=== PATIENT | male | born 1935 | race Caucasian/White ===

== ENCOUNTER 2016-04-19 04:45 | Emergency (ER) | payer OTHER ==
--- NOTE | 2016-04-19 04:55 | PROVIDER DOCUMENTATION ---
HPI-Head Injury - General Chief Complaint: Fall Stated Complaint: FALL, "SMALL SCRATCH ON FACE" Time Seen by Provider: 04/19/16 04:49 Source: patient, EMS Allergies/Adverse Reactions: Patient Allergies Allergy/AdvReac Type Severity Reaction Status Date / Time No Known Allergies Allergy Verified 04/19/16 04:52 Home Medications: Home Medication List Medication Instructions Recorded Confirmed Last Taken Type Finasteride 5 mg PO DAILY 07/05/13 09/04/14 09/03/14 18:00 History Terazosin [Hytrin] 5 mg PO DAILY 07/05/13 09/04/14 09/03/14 18:00 History Metformin E.r. [Glucophage Xr] 1,000 mg PO BID CC 07/06/13 09/04/14 09/03/14 18: 00 History Aspirin 81 mg PO DAILY 10/04/13 09/04/14 09/03/14 18:00 History Ergocalciferol (Vitamin D2) 50,000 unit PO Q7D 10/04/13 09/04/14 08/15/14 History [Vitamin D] Pioglitazone [Actos] 50 mg PO DAILY 10/04/13 09/04/14 09/03/14 18:00 History Clopidogrel [Plavix] 75 mg PO HS #0 tablet 10/09/13 09/04/14 09/03/14 18:00 Rx Simvastatin 40 mg PO QHS 03/19/14 09/04/14 09/03/14 18:00 History Amlodipine Besylate 2.5 mg PO QHS 08/16/14 09/04/14 09/03/14 18:00 History Docusate Sodium 2 cap PO QHS 08/16/14 09/04/14 09/03/14 18:00 History Melatonin 3 mg PO QHS 08/16/14 09/04/14 09/03/14 18:00 History Acetaminophen [Tylenol] 650 mg PO Q6H PRN PRN #0 tablet 09/20/15 Unknown Rx Donepezil [Aricept] 5 mg PO QAM #0 tablet 09/20/15 Unknown Rx Finasteride [Proscar] 5 mg PO DAILY #0 tablet 09/20/15 Unknown Rx - History of Present Illness-Head Injury Nature of Presenting Problem: pt was sent from his SNF as he fell while getting up to walk to the bathroom. He fall frequently. 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 HE did sustain an abrasion over the right side of his scalp. HE denies any other injuries and denies all pain. No LOC. No hx of recent illness or changes in his medications Review of Systems - Adult - REVIEW OF SYSTEMS - ADULT Constitutional: denies: chills, fever Eyes: denies: discharge, decreased vision, blurred vision, double vision Ears, Nose, Mouth & Throat: denies: ear pain Cardiovascular: denies: chest pain, palpitations, syncope Respiratory: denies: cough, shortness of breath Gastrointestinal: denies: abdominal pain, diarrhea, nausea, vomiting Genitourinary: denies: dysuria, frequency, flank pain Musculoskeletal: denies: back pain, neck pain Integumentary: denies: rash Neurological: reports: see HPI. denies: headache/migraines, numbness Psychiatric: reports: no symptoms reported Endocrine: reports: no symptoms reported Hematologic/Lymphatic: reports: no symptoms reported Allergic/Immunologic: reports: no symptoms reported All Other Systems: Reviewed and Negative Past History - Adult - PAST MEDICAL HISTORY-ADULT Review of Records: reports: Old Records Reviewed, Nursing Assessment Review, Medications Reviewed, Social history reviewed & non-contributory. Major Childhood Illnesses: reports: denies history Cardiovascular: reports: angina, CAD, HTN, hyperlipidemia Respiratory: reports: denies history Gastrointestinal: reports: denies history Obstetrical/Gynecological: reports: denies history Genitourinary: reports: other (BPH) Musculoskeletal: reports: denies history Neurological: reports: CVA, stroke deficits (right sided-mild) Psychiatric: reports: denies history Endocrine/Immune: reports: Diabetes Other Conditions: reports: denies history - PRIOR SURGERIES/PROCEDURES Surgical/Procedure History: reports: CABG, orthopedic (extremity) - PRIOR HOSPITALIZATIONS Prior Hospitalizations: reports: for other non-related - IMMUNIZATION STATUS Childhood Immunizations: See Nurse Assessment Flu Vaccine: See Nurse Assessment - FAMILY HISTORY Family History: reviewed, not pertinent - SOCIAL HISTORY Smoking: denies Substance Use: none/never Alcohol Use Frequency: never Living Situation: care facility Physical Exam- Neurological - Physical Exam-Neuro Initial Vital Signs Reviewed: Yes General Appearance: appears well, alert, no apparent distress Eye Exam: bilateral eye: PERRL, EOMI HENMT: negative: normocephalic/atraumatic (minor abrasion over right side of head with no tenderness) Head Injury: negative: active bleeding, Rocha's Sign Neck: non-tender, full range of motion, supple, normal inspection Respiratory: chest non-tender, lungs clear, normal breath sounds, no pleuratic chest pain, no respiratory distress, no accessory muscle use Cardiovascular: regular rate, rhythm, no edema, no murmur Abdominal Exam: normal bowel sounds, non tender, soft, no organomegaly, no pulsatile mass, abdominal bruit Extremity: non-tender, normal inspection, no pedal edema, 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 negative: no motor deficit (pt is moderately weak on the RUE. RLE. 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 negative: no motor/ sensory deficits, aphasia Integumentary: normal color, normal turgor, warm/dry Psych/Mental Status: normal mood/affect, normal thought content, normal thought process, oriented x 3 Progress - CT/MRI 1 CT Study: Head Impression: Normal CT Results: no acute changes Departure - Departure Time of Disposition Order: 05:51 DIAGNOSIS: Scalp abrasion Qualifiers: Encounter type: initial encounter Qualified Code(s): S00.01XA - Abrasion of scalp, initial encounter Disposition: [facility] Certified Medical Emergency: Emergent Condition: Good Additional Instructions: ED Follow Up Instructions: You have been treated by a care provider in the Emergency Department. These instructions are being provided to you so you can have an understanding of how to care for yourself upon discharge. Upon discharge from the Emergency Department, you are responsible for making arrangements for follow-up care by a physician of your choice. Take all prescribed medications as directed. Return to the Emergency Department immediately for any new or worsening symptoms. You may call the Physician Referral phone number at [phone] to obtain a list of Physicians who are taking new patients.
[2016-04-19 06:33] VITALS: BP 132/81
--- NOTE | 2016-04-19 08:25 | Diag Imaging Result Document ---
PROCEDURE NAME: HEAD W/O CONTRAST - 04/19/2016 CT OF THE HEAD WITHOUT CONTRAST: FINDINGS: There is cerebral and cerebellar atrophy. There is extensive abnormal lucency throughout the white matter of both hemispheres. There is no evidence of bleed, mass effect, or abnormal extraaxial fluid collection. There are calcifications in the basilar and both internal carotid arteries. There is some mucosal thickening in both maxillary sinuses. The calvarium appears to be intact. There is encephalomalacia in the left occipital lobe. IMPRESSION: Chronic microvascular change, atrophy and old infarcts. No significant change since 09/13/2015.
== END 2016-04-19 06:33 ==
LOC: EDBD → ED 04:45
DX: S00.01XA Abrasion of scalp, initial encounter (principal); I25.10 Atherosclerotic heart disease of native coronary artery without angina pectoris; I10 Essential (primary) hypertension; E78.5 Hyperlipidemia, unspecified; R29.6 Repeated falls; N40.0 Benign prostatic hyperplasia without lower urinary tract symptoms; I69.851 Hemiplegia and hemiparesis following other cerebrovascular disease affecting right dominant side; E11.9 Type 2 diabetes mellitus without complications; Z79.899 Other long term (current) drug therapy; Z95.1 Presence of aortocoronary bypass graft; Z79.02 Long term (current) use of antithrombotics/antiplatelets; Z79.82 Long term (current) use of aspirin; W19.XXXA Unspecified fall, initial encounter
CPT/HCPCS: 70450

== ENCOUNTER 2018-04-08 06:31 | Inpatient (IN) ==
--- NOTE | 2018-04-08 06:51 | PROVIDER DOCUMENTATION ---
HPI-Respiratory General - General Chief Complaint: Shortness of Breath Stated Complaint: Low oxygen sat Time Seen by Provider: 04/08/18 06:41 Source: patient, EMS (EMS gives hx of pt eating breakfast at [facility] when began asping fro air and lips were cyanotic. P Ox 83%. no hx COPD, CHF, CA.) Allergies/Adverse Reactions: Patient Allergies Allergy/AdvReac Type Severity Reaction Status Date / Time No Known Allergies Allergy Verified 04/19/16 04:52 Home Medications: Home Medication List Medication Instructions Recorded Confirmed Last Taken Type Finasteride 5 mg PO DAILY 07/05/13 04/08/18 06/03/17 08:00 History Terazosin [Hytrin] 5 mg PO HS 07/05/13 04/08/18 06/03/17 20:00 History Metformin E.r. [Glucophage Xr] 500 mg PO BID CC 07/06/13 04/08/18 06/03/17 20: 00 History 500 MG Acetaminophen [Tylenol] 500 mg PO BID 06/04/17 04/08/18 06/03/17 20:00 History 500 MG Amlodipine [Norvasc] 5 mg PO BID 06/04/17 04/08/18 06/03/17 20:00 History 5 MG Cholecalciferol (Vitamin D3) 1,000 unit PO DAILY 06/04/17 04/08/18 06/03/17 08: 00 History [Vitamin D3] Citalopram Hydrobromide [Celexa] 5 mg PO DAILY 06/04/17 04/08/18 06/03/17 08:00 History Fluticasone 50 Mcg Nasal [place] 2 spray [place] DAILY 06/04/17 04/08/18 06/03/17 08: 00 History [Flonase] 2 SPRAY Loperamide [Imodium] 2 mg PO PRN PRN 06/04/17 04/08/18 Unknown History Pantoprazole [Protonix] 40 mg PO DAILY@0700 06/04/17 04/08/18 06/03/17 08:00 History 40 MG Polyethylene Glycol 3350 [Miralax] 17 gm PO PRN PRN 06/04/17 04/08/18 Unknown History Baclofen 5 mg PO BID 04/08/18 04/08/18 Unknown History - History of Present Illness-Resp Nature of Presenting Problem: pt denies CP, sensation of SOB, n, v, diarrhea,. no fever or cough. Admits to hx of CVA,HTN,DM(metformin). Quality of Pain: reports: none Review of Systems - Adult - REVIEW OF SYSTEMS - ADULT Constitutional: reports: no symptoms reported. denies: chills, fever, fatique, night sweats Eyes: reports: no symptoms reported Ears, Nose, Mouth & Throat: reports: no symptoms reported Cardiovascular: reports: no symptoms reported. denies: chest pain, edema, palpitations, syncope Respiratory: reports: no symptoms reported. denies: cough, dyspnea on exertion , shortness of breath, wheezing Gastrointestinal: reports: no symptoms reported. denies: nausea, vomiting Genitourinary: reports: no symptoms reported Musculoskeletal: reports: no symptoms reported Integumentary: reports: no symptoms reported Neurological: reports: no symptoms reported Psychiatric: reports: no symptoms reported Endocrine: reports: no symptoms reported Hematologic/Lymphatic: reports: no symptoms reported Allergic/Immunologic: reports: no symptoms reported All Other Systems: Reviewed and Negative Past History - Adult - PAST MEDICAL HISTORY-ADULT Review of Records: reports: Old Records Reviewed, Nursing Assessment Review, Medications Reviewed, Social history reviewed & non-contributory. Major Childhood Illnesses: reports: denies history Cardiovascular: reports: angina, CAD, HTN, hyperlipidemia Respiratory: reports: denies history Gastrointestinal: reports: denies history Obstetrical/Gynecological: reports: denies history Genitourinary: reports: other (BPH) Musculoskeletal: reports: denies history Neurological: reports: CVA, stroke deficits (right sided-mild) Psychiatric: reports: denies history Endocrine/Immune: reports: Diabetes Other Conditions: reports: denies history - PRIOR SURGERIES/PROCEDURES Surgical/Procedure History: reports: CABG, orthopedic (extremity) - PRIOR HOSPITALIZATIONS Prior Hospitalizations: reports: for other non-related - IMMUNIZATION STATUS Childhood Immunizations: See Nurse Assessment Flu Vaccine: See Nurse Assessment - FAMILY HISTORY Family History: reviewed, not pertinent Physical Exam-General - CONSTITUTIONAL General Appearance: alert, no apparent distress - EYES Eyes: PERRL/EOMI, pink conjunctivae - HEAD, EARS, NOSE, MOUTH & THROAT HENMT: normocephalic/atraumatic, moist mucous membranes, normal ENT inspection - NECK Neck: full range of motion, supple - RESPIRATORY Respiratory: lungs clear, normal breath sounds, no respiratory distress, no accessory muscle use. negative: crackles, rales, rhonchi, stridor, wheezing - CARDIOVASCULAR Cardiovascular: regular rate, rhythm, no edema, no gallop, no JVD, no murmur - GASTROINTESTINAL (ABDOMEN) Abdominal Exam: non tender, soft, no organomegaly - MUSCULOSKELETAL Extremity: no pedal edema, no calf tenderness. 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 negative: aphasia, facial droop - PSYCHIATRIC Psych/Mental Status: normal mood/affect, normal thought content, normal thought process, oriented x 3 - HEART Score HEART Score: Age: > or = 65 Years HEART Score: Risk Factors for Atherosclerotic Disease: > or = 3 Risk Factors or History of Atherosclerotic Disease Progress - PLAN OF CARE/RESULTS Progress/Plan/Lab Results: Vital Signs - 8 hr 04/08/18 06:31 04/08/18 07:29 Temperature 98.9 F Pulse Rate 82 87 Respiratory Rate 15 24 Blood Pressure 144/83 160/89 O2 Sat by Pulse Oximetry 90 L 95 Laboratory Results - last 24 hr 04/08/18 04/08/18 04/08/18 04:40 04:40 04:40 WBC 11.32 H RBC 4.59 L Hgb 14.0 Hct 42.4 MCV 92.4 MCH 30.5 MCHC 33.0 RDW Std Deviation 13.5 Plt Count 250 MPV 9.6 Immature Gran % (Auto) 0.5 Neut % (Auto) 48.6 Lymph % (Auto) 34.2 [place] % (Auto) 12.2 H Eos % (Auto) 4.0 Baso % (Auto) 0.5 Immature Gran # (Auto) 0.06 H Neut # (Auto) 5.50 Lymph # (Auto) 3.87 H [place] # (Auto) 1.38 H Eos # (Auto) 0.45 Baso # (Auto) 0.06 D-Dimer, Quantitative Specimen Type Sample Site pH pCO2 pO2 HCO3 Base Excess Oxyhemoglobin ABG O2 Sat (Calculated) ABG O2 Saturation ABG Carboxyhemoglobin ABG Methemoglobin Yovani Test A-a O2 Difference Total Hemoglobin Lactate Blood Gas Modality FiO2 % Sodium Potassium Chloride Carbon Dioxide Anion Gap BUN Creatinine Estimated GFR/1.73 m2 BUN/Creatinine Ratio Glucose Calculated Osmolality Calcium Magnesium 1.9 Total Bilirubin AST ALT Alkaline Phosphatase Troponin T [id number] Pept 182 Total Protein Albumin Globulin Albumin/Globulin Ratio Lipase 15 Urine Source Urine Color Urine Clarity Urine pH Ur Specific Peculiar Urine Protein Urine Ketones Urine Blood Urine Nitrite Urine Bilirubin Urine Urobilinogen Urine Microscopic RBC Urine WBC Urine Microscopic WBC Urine Bacteria Urine Glucose Influenza A (Rapid) Influenza B (Rapid) 04/08/18 04/08/18 04/08/18 04:40 06:40 06:40 WBC RBC Hgb Hct MCV MCH MCHC RDW Std Deviation Plt Count MPV Immature Gran % (Auto) Neut % (Auto) Lymph % (Auto) [place] % (Auto) Eos % (Auto) Baso % (Auto) Immature Gran # (Auto) Neut # (Auto) Lymph # (Auto) [place] # (Auto) Eos # (Auto) Baso # (Auto) D-Dimer, Quantitative 2.02 H Specimen Type Sample Site pH pCO2 pO2 HCO3 Base Excess Oxyhemoglobin ABG O2 Sat (Calculated) ABG O2 Saturation ABG Carboxyhemoglobin ABG Methemoglobin Yovani Test A-a O2 Difference Total Hemoglobin Lactate Blood Gas Modality FiO2 % Sodium 139 Potassium 3.9 Chloride 103 Carbon Dioxide 20 L Anion Gap 17 BUN 13 Creatinine 0.8 Estimated GFR/1.73 m2 > 60 BUN/Creatinine Ratio 16 Glucose 112 H Calculated Osmolality 278 Calcium 8.8 Magnesium Total Bilirubin 0.40 AST 10 ALT 6 L Alkaline Phosphatase 94 Troponin T 0.017 [id number] Pept Total Protein 6.1 L Albumin 3.8 Globulin 2.0 Albumin/Globulin Ratio 2.0 Lipase Urine Source Urine Color Urine Clarity Urine pH Ur Specific [place]iar Urine Protein Urine Ketones Urine Blood Urine Nitrite Urine Bilirubin Urine Urobilinogen Urine Microscopic RBC Urine WBC Urine Microscopic WBC Urine Bacteria Urine Glucose Influenza A (Rapid) Influenza B (Rapid) 04/08/18 04/08/18 04/08/18 06:53 06:55 07:35 WBC RBC Hgb Hct MCV MCH MCHC RDW Std Deviation Plt Count MPV Immature Gran % (Auto) Neut % (Auto) Lymph % (Auto) [place] % (Auto) Eos % (Auto) Baso % (Auto) Immature Gran # (Auto) Neut # (Auto) Lymph # (Auto) [place] # (Auto) Eos # (Auto) Baso # (Auto) D-Dimer, Quantitative Specimen Type ARTERIAL Sample Site L BRACHIAL pH 7.47 H pCO2 33 L pO2 47 L* HCO3 25.3 Base Excess 0.9 Oxyhemoglobin 84.1 L* ABG O2 Sat (Calculated) 16.5 ABG O2 Saturation 87.1 L ABG Carboxyhemoglobin 2.20 ABG Methemoglobin 1.1 Yovani Test NO A-a O2 Difference 61.0 Total Hemoglobin 14.0 Lactate 1.00 Blood Gas Modality ROOM AIR FiO2 % 21.0 Sodium Potassium Chloride Carbon Dioxide Anion Gap BUN Creatinine Estimated GFR/1.73 m2 BUN/Creatinine Ratio Glucose Calculated Osmolality Calcium Magnesium Total Bilirubin AST ALT Alkaline Phosphatase Troponin T [id number] Pept Total Protein Albumin Globulin Albumin/Globulin Ratio Lipase Urine Source CATH Urine Color YELLOW Urine Clarity SL. CLOUDY A Urine pH 5.0 Ur Specific P[place]iar 1.020 Urine Protein NEGATIVE Urine Ketones NEGATIVE Urine Blood 3+ A Urine Nitrite POSITIVE A Urine Bilirubin NEGATIVE Urine Urobilinogen NORMAL Urine Microscopic RBC 20-40 A Urine WBC 2+ A Urine Microscopic WBC 20-40 A Urine Bacteria 2+ Urine Glucose NEGATIVE Influenza A (Rapid) NEGATIVE Influenza B (Rapid) NEGATIVE Orders Category Date Time Status Cardiac Monitoring DIRECTED Care 04/08/18 06:43 Active [place] Insertion ORDERED Care 04/08/18 07:29 Active Saline Loc NOW Care 04/08/18 06:43 Active CHEST-PORTABLE [RAD] Stat Exams 04/08/18 06:[address] ANGIOGRM PULMONARY ARTERIES [CT] Stat Exams 04/08/18 06:45 Taken ABG [RESP] Routine Lab 04/08/18 06:55 Completed BLOOD CULTURE [BLDCUL] Stat Lab 04/08/18 06:44 Ordered CBC WITH ELECTRONIC DIFF [HEME] Stat Lab 04/08/18 04:40 Completed COMPREHENSIVE METABOLIC PANEL [CHEM] Stat Lab 04/08/18 06:40 Completed D-DIMER [COAG] Stat Lab 04/08/18 06:[address] Stat Lab 04/08/18 06:53 Completed LIPASE [CHEM] Stat Lab 04/08/18 04:40 Completed MAGNESIUM [CHEM] Stat Lab 04/08/18 04:40 Completed PRO B-NATRIURETIC PEPTIDE Stat Lab 04/08/18 04:40 Completed TROPONIN T Stat Lab 04/08/18 04:[address] W/POSS RFLX CULT [URINALYSIS] Stat Lab 04/08/18 07:35 Completed URINE CULTURE [RM] Routine Lab 04/08/18 08:20 Ordered O2 Per Protocol Stat Oth 04/08/18 06:43 Active EKG [EKG] Stat Ther 04/08/18 06:43 Ordered Result Diagrams: 04/08/18 04:40 04/08/18 06:40 - EKG 1 Time of EKG reading by physician:: 08:42 EKG Read and Signed by:: Noam Bunn Rate: 77 Rhythm: sinus [place]: normal QRS: normal NE Interval: normal ST Wave: non-specific ST changes - XRAY 1 XRAY Study: Chest Impression: Normal - CT/MRI 1 CT Study: Angiogram Impression: Abnormal, Discussed w/Radiology CT Results: multiple pes Departure - Departure Date of Disposition Decision: 04/08/18 Time of Disposition Decision: 08:48 DIAGNOSIS: Pulmonary emboli Disposition: ADMITTED INPATIENT 09 Certified Medical Emergency: Emergent Condition: Serious - Critical Care Note This patient required my direct & personal management of CC.: No Attestation - Physician/ GAURI Attestation Patient care was provided by Advanced Practice Provider:: No The physician spent face to face time with patient:: Yes Advanced Practice Provider documentation review:: Supervising physician onsite and consulted in the evaluation and care of this patient. The physician did have a face to face encounter with the patient.
[2018-04-08 07:01] LABS: BASO# 0.06 X1000 (0.0-0.2); BASO% 0.5 % (0.0-0.8); EOS# 0.45 X1000 (0.0-0.7); HEMATOCRIT 42.4 % (42.0-52.0); IMM GRAN# 0.06 X1000 (0.0-0.04); IMM GRAN% 0.5 % (0.0-0.5); LYMPH# 3.87 X1000 (1.2-3.4); LYMPH% 34.2 % (20.5-51.1); MCH 30.5 PG (27-31); MCV 92.4 FL (81-99); MONO# 1.38 X1000 (0.11-0.59); MONO% 12.2 % (1.7-9.3); MPV 9.6 FL (7.4-10.4); NEUT% 48.6 % (42.2-75.2); PLT 250 X1000 (130-400); RBC 4.59 XMIL (4.7-6.1); RDW 13.5 % (11.5-14.5); WBC 11.32 X1000 (4.8-10.8)
[2018-04-08 07:08] LABS: BE 0.9 mmoll (-3.0-3.0); BLOOD TYPE ARTERIAL; HCO3-(ACT) 25.3 mmoll (20.0-26.0); METHB 1.1 % (0.0-1.5); O2(CT) 16.5 mL/dL (15.0-23.0); PCO2(98.6) 33 mmHg (35-45); SAMPLE BLOOD; SAO2 87.1 % (95.0-100.0); pH(98.6) 7.47 (7.35-7.45)
[2018-04-08 07:27] LABS: O2HB 84.1 % (95.0-99.0); PO2(98.6) 47 mmHg (60-100)
[2018-04-08 07:28] LABS: ALLEN TEST NO; MODALITY ROOM AIR
[2018-04-08 07:39] LABS: INFLUENZA A NEGATIVE (NEGATIVE); INFLUENZA B NEGATIVE (NEGATIVE)
[2018-04-08 07:46] LABS: MAGNESIUM 1.9 mg/dL (1.5-2.7)
--- NOTE | 2018-04-08 07:49 | Diag Imaging Result Doc PS360 ---
EXAM: CHEST-PORTABLE - 04/08/2018 HISTORY: hypoxia TECHNIQUE: Portable chest COMPARISON: 03/04/2016 FINDINGS: Heart size appears upper normal. There are sternal wires from previous surgery again seen. There are left basilar granuloma and calcified left hilar lymph node from old granulomatous disease which are stable. There is mild pleural thickening/scarring at the lateral left base similar to prior. The lungs appear essentially clear of acute changes. There is no substantial pleural effusion or pneumothorax identified. IMPRESSION: No evidence of acute disease. Electronically signed by Marco Schwartz 04/08/2018 7:47 AM
[2018-04-08 07:52] LABS: AGAP 17; ALBUMIN 3.8 g/dL (3.5-5.0); ALKALINE PHOSPHATASE 94 U/L (32-122); BUN 13 mg/dL (8-22); CALCIUM 8.8 mg/dL (8.8-10.2); CHLORIDE 103 mmol/L (98-107); COSMO 278; CREATININE 0.8 mg/dL (0.7-1.2); ESTIMATED GFR > 60; GLUCOSE 112 mg/dL (70-104); GOT 10 U/L (10-34); GPT 6 U/L (10-44); POTASSIUM 3.9 mmol/L (3.5-5.1); SODIUM 139 mmol/L (136-145); TCO2 20 mmol/L (25-35); TOTAL PROTEIN 6.1 g/dL (6.3-8.3)
[2018-04-08 08:19] LABS: BILIRUBIN URINE NEGATIVE (NEGATIVE); BLOOD URINE 3+ (NEGATIVE); GLUCOSE URINE NEGATIVE (NEGATIVE); KETONE URINE NEGATIVE (NEGATIVE); PROTEIN URINE NEGATIVE (NEGATIVE)
[2018-04-08 08:20] LABS: CLARITY SL. CLOUDY (CLEAR); COLOR YELLOW; LEUKOCYTES URINE 2+ (NEGATIVE); NITRITE URINE POSITIVE (NEGATIVE); URINE BACTERIA 2+ /HFP; URINE RBC 20-40 /HPF (<10); URINE SOURCE CATH; URINE WBC 20-40 /HPF (<10); UROBILINOGEN URINE NORMAL
--- NOTE | 2018-04-08 08:42 | Diag Imaging Result Doc PS360 ---
EXAM: CT ANGIOGRAM PULMONARY ARTERIES - 04/08/2018 HISTORY: hypoxemia TECHNIQUE: CT angiogram pulmonary arteries with intravenous contrast. Axial, 2-D coronal MIP, and 3-D MIP images are obtained. COMPARISON: None. FINDINGS: There are pulmonary emboli at the bilateral lower lobes, right middle and upper lobes, and left upper lobe (most conspicuous at the lingula). There is no indication of aortic dissection. There is mild cardiomegaly. There is some dependent atelectasis. There is mild atelectasis at the posterior left lingula. There is no discrete consolidation identified. There is trace left pleural effusion. There is no pneumothorax seen. IMPRESSION: Bilateral pulmonary emboli. This report was discussed with Dr. Bunn on 04/08/2018 at 8:35 AM and was readback. Electronically signed by Marco Schwartz 04/08/2018 8:40 AM
[2018-04-08] MEDS ORDERED: LOVENOX 1 MG/KG SUBQ ONE (08:50)
[2018-04-08] MEDS ORDERED: LOVENOX ONE (08:55)
--- NOTE | 2018-04-08 10:45 | EKG Report ---
Test Performed on : 04/08/2018 07:18:09 AM Test Reason : WEAKNESS Blood Pressure : / mmHG Vent. Rate : 077 BPM Atrial Rate : 077 BPM P-R Int : 184 ms QRS Dur : 106 ms QT Int : 384 ms P-R-T Axes : 040 020 023 degrees QTc Int : 434 ms Normal sinus rhythm. RSR' or QR pattern in V1 suggests right ventricular conduction delay ST & T wave abnormality, consider anterolateral ischemia Abnormal ECG When compared with ECG of 08-APR-2018 07:17, (Unconfirmed) Sinus rhythm. has replaced Junctional rhythm. Unconfirmed Result
--- NOTE | 2018-04-08 11:02 | Extremity Venous Study ---
EXAM: Venous U/S Bilateral Legs - 04/08/2018 HISTORY: pe TECHNIQUE: Bilateral lower extremity Doppler venous ultrasound COMPARISON: None. FINDINGS: There is thrombus in the common femoral, superficial femoral, popliteal, posterior tibial, and peroneal veins on the left. The deep veins of the right lower extremity demonstrate flow and compressibility, without filling defects. IMPRESSION: Extensive left lower extremity deep venous thrombosis. No evidence of right lower extremity deep venous thrombosis. Electronically signed by Marco Schwartz 04/08/2018 10:59 AM
[2018-04-08] MEDS ORDERED: MIRALAX PO PRN (12:26)
[2018-04-08] MEDS: ROCEPHIN 1 GM in NS 50 ML IV SCH (14:07)
[2018-04-08] MEDS: NS 1,000 ML IV SCH (14:07)
[2018-04-08 14:58] LABS: BILIRUBIN URINE NEGATIVE (NEGATIVE); BLOOD URINE 4+ (NEGATIVE); CLARITY VERY CLOUDY (CLEAR); COLOR AMBER; GLUCOSE URINE NEGATIVE (NEGATIVE); KETONE URINE TRACE mg/dL (NEGATIVE); LEUKOCYTES URINE 1+ (NEGATIVE); NITRITE URINE POSITIVE (NEGATIVE); PH URINE 6.5; UROBILINOGEN URINE 1 mg/dL
--- NOTE | 2018-04-08 14:59 | HISTORY AND PHYSICAL ---
ADDENDUM: The patient was personally seen by me [id number] and I agree with the assessment and plan of nurse practitioner Sharlene Benitez. This is an 83-year-old gentleman who has been admitted with a bilateral pulmonary embolism and also has extensive deep vein thrombosis in the left lower extremity. He has received 1 dose of Lovenox 1 mg/kg subcutaneously at the emergency room that we will continue as every 12 hours. I am going to give him IV fluid and supportive care. We are going to hold amlodipine for his hypertension since he is at risk of having hypotension at this time because of risk of further emboli being thrown from his left lower extremity. He is DNR level 1, that has been ordered in chart. We will follow hospital course. cc: Cain Davies MD
[2018-04-08 15:20] LABS: URINE BACTERIA 1+ /HFP; URINE CAST NONE SEEN /LPF; URINE CRYSTAL NONE SEEN /HPF; URINE EPITHELIAL CELLS <10 /HPF (<10); URINE RBC TNTC /HPF (<10); URINE SOURCE CATH; URINE YEAST NONE SEEN /HPF
[2018-04-08] MEDS: HUMALOG (PARKWAY) SUBQ SCH ×2 (17:44→22:36)
[2018-04-08] MEDS: GLUCOPHAGE XR PO SCH (17:45)
--- NOTE | 2018-04-08 18:34 | HISTORY AND PHYSICAL ---
CHIEF COMPLAINT: Shortness of breath. HISTORY OF PRESENT ILLNESS: This is an 83-year-old gentleman who was brought in to the emergency room by EMS from [facility] when he started having shortness of breath while eating breakfast. He was noticed to have cyanosis, and his pulse ox was noted to be 83%. The patient is not able to give proper history because of some dementia. He denies having any chest pain, and having any other complaints at the time that I saw him. PAST MEDICAL HISTORY: 1. Coronary artery disease status post coronary artery bypass graft surgery. 2. Type 2 diabetes mellitus. 3. History of CVA. 4. Hypertension. 5. Benign prostatic hypertrophy. 6. Depression. 7. Senile dementia. 8. Gastroesophageal reflux disease. 9. Allergic rhinitis. FAMILY HISTORY: Noncontributory. SOCIAL HISTORY: Patient is retired and lives at [facility]. CURRENT HOME MEDICATIONS: 1. Finasteride 5 mg orally once daily. 2. Terazosin 5 mg orally once daily at bedtime. 3. Metformin ER 500 mg orally twice daily. 4. Amlodipine 5 mg orally twice daily. 5. Citalopram 5 mg orally once daily. 6. Loperamide 2 mg orally as needed for diarrhea. 7. Protonix 40 mg orally once daily. 8. MiraLAX 17 g orally once daily as needed for constipation. 9. Baclofen 5 mg orally twice daily. 10. Acetaminophen 500 mg orally twice daily. REVIEW OF SYSTEMS: A full review of system could not be obtained since patient is a poor historian. ALLERGIES: No known drug allergies. PHYSICAL EXAMINATION: VITAL SIGNS: Temperature 98.4 degrees, pulse 73 per minute, respiratory rate 20 per minute, blood pressure 156/80, and pulse oximetry 91 percent on 4 L of oxygen via nasal cannula. GENERAL: Patient is awake, but somewhat disoriented and forgetful. He does not appear to be in any acute distress. He is comfortably laying in his bed. HEENT: No acute findings noted. NECK: Supple without any thyromegaly. LYMPHATICS: No lymphadenopathy noted in the neck region. CHEST: Chest wall is nontender. CARDIOVASCULAR: First and second heart sounds are audible without any murmurs or gallops. RESPIRATORY: No respiratory distress noted. Bilateral lung air entry is moderately decreased, but there are no rales or rhonchi present on auscultation. GASTROINTESTINAL: Abdomen is soft and nondistended. Normal bowel sounds are present. NEUROLOGIC: No focal deficits are present. PSYCHIATRIC: Normal affect noted. The patient does appear to be forgetful however. MUSCULOSKELETAL: Range of motion in most of the joints somewhat limited secondary to osteoarthritis. No deformities are present. GENITOURINARY: Deferred. INTEGUMENTARY: Skin is warm and dry. It is without any rash. DIAGNOSTIC DATA: CBC shows WBC count of 11.32. Rest of the CBC is nondiagnostic. D-dimer was found to be elevated at 2.02. Chemistry was nondiagnostic. ABG on room air done at the emergency room showed pH of 7.47, pCO2 33, and PO2 47. Urinalysis showed 10 to 20 white blood cells per high-power field, and too numerous to count RBCs. It was nitrite positive. Influenza testing was negative. Chest x-ray done at the emergency room did not show any evidence of acute disease and pulmonary CT angiogram showed bilateral pulmonary emboli. A lower extremity venous Doppler ultrasound was also positive for extensive left lower extremity deep vein thrombosis. IMPRESSION: Acute hypoxemic respiratory failure secondary to bilateral pulmonary thromboembolism associated with left lower extremity deep vein thrombosis in this 83-year-old gentleman who has multiple comorbid conditions including advanced age, coronary artery disease, type 2 diabetes mellitus, hypertension, history of stroke, benign prostatic hypertrophy, and depression. PLAN: The patient has been admitted to the med-surg floor, and will be given supplemental oxygen. He has already been initiated on enoxaparin 1 mg/kg subcutaneously, which will be continued every 12 hours. I am going to give him IV fluids, and also give him ceftriaxone 1 g IV 24 hours for urinary tract infection. We will continue with her routine home medications and initiate him on lispro insulin as per sliding scale. We will repeat ABG in the morning, and will follow hospital course. cc: Cain Davies MD
[2018-04-08] MEDS: LOVENOX SUBQ SCH (22:35)
[2018-04-08] MEDS: HYTRIN PO SCH (22:35)
[2018-04-09 03:19] LABS: BLOOD TYPE ARTERIAL; SAMPLE BLOOD
[2018-04-09] MEDS: NS 1,000 ML IV SCH ×2 (03:19→17:50)
[2018-04-09 03:22] LABS: BE 6.5 mmoll (-3.0-3.0); METHB 1.2 % (0.0-1.5); O2(CT) 6.6 mL/dL (15.0-23.0); O2HB 95.7 % (95.0-99.0); PCO2(98.6) 40 mmHg (35-45); PO2(98.6) 78 mmHg (60-100); SAO2 99.9 % (95.0-100.0); THB 4.8 g/dL (11.5-17.4); pH(98.6) 7.49 (7.35-7.45)
[2018-04-09 03:24] LABS: ALLEN TEST YES; MODALITY ROOM AIR
[2018-04-09] MEDS: PROTONIX PO SCH (06:04)
[2018-04-09] MEDS: HUMALOG (PARKWAY) SUBQ SCH ×4 (06:05→21:26)
[2018-04-09] MEDS: PROSCAR PO SCH (08:51)
[2018-04-09] MEDS: CELEXA PO SCH (08:51)
[2018-04-09] MEDS: GLUCOPHAGE XR PO SCH ×2 (08:51→17:52)
[2018-04-09] MEDS: FLONASE NAS SCH (08:53)
[2018-04-09] MEDS: LOVENOX SUBQ SCH ×2 (09:01→21:27)
--- NOTE | 2018-04-09 11:50 | PROGRESS NOTE ---
DATE: 04/09/2018 SUBJECTIVE: The patient denies having any acute complaints this morning and feels better. OBJECTIVE: Vital Signs: Temperature 98.2 degrees, pulse 69 per minute, respiratory rate 20 per minute, blood pressure 147/79, pulse oximetry 93% on 3 L of oxygen via nasal cannula. General: Patient is awake and alert. He does not appear to be in any acute distress. Cardiovascular System: First and second heart sounds are audible without any murmurs or gallops. Respiratory System: No respiratory distress noted. Bilateral lung air entry is moderately decreased, but there are no rales or rhonchi present on auscultation. Gastrointestinal System: Abdomen is soft and nontender on palpation. Normal bowel sounds are present. DIAGNOSTIC DATA: Blood gas done this morning on room air showed pH of 7.49, pCO2 40 and PO2 improved from 47 to 78. IMPRESSION: 1. Acute hypoxemic respiratory failure secondary to bilateral pulmonary emboli; that appears to be getting better. 2. Left lower extremity deep vein thrombosis. 3. Coronary artery disease. 4. Type 2 diabetes mellitus. 5. Hypertension. PLAN: The patient will continue to receive Lovenox 100 mg subcutaneously every 12 hours. His condition is gradually getting better and his oxygenation has also improved. We will continue to monitor him here at the hospital and keep on giving him his routine home medications for coronary artery disease, diabetes and hypertension. He also has urinary tract infection for which we will continue to give him ceftriaxone 1 g IV every 24 hours. His overall condition has been stable, but he does appear weak to me. We will probably start physical therapy once his condition gets stabilized. cc: Cain Davies MD
[2018-04-09] MEDS: ROCEPHIN 1 GM in NS 50 ML IV SCH (14:04)
[2018-04-09] MEDS: HYTRIN PO SCH (21:27)
[2018-04-10] MEDS: PROTONIX PO SCH (06:02)
[2018-04-10] MEDS: HUMALOG (PARKWAY) SUBQ SCH ×4 (06:34→22:02)
[2018-04-10 07:17] LABS: BASO# 0.04 X1000 (0.0-0.2); BASO% 0.5 % (0.0-0.8); EOS# 0.63 X1000 (0.0-0.7); EOS% 7.2 % (0.0-10.0); HEMATOCRIT 39.2 % (42.0-52.0); HEMOGLOBIN 12.9 g/dL (14.0-18.0); IMM GRAN# 0.04 X1000 (0.0-0.04); IMM GRAN% 0.5 % (0.0-0.5); LYMPH# 2.78 X1000 (1.2-3.4); LYMPH% 31.7 % (20.5-51.1); MCH 30.5 PG (27-31); MCHC 32.9 g/dL (33-37); MCV 92.7 FL (81-99); MONO# 1.12 X1000 (0.11-0.59); MONO% 12.8 % (1.7-9.3); MPV 9.5 FL (7.4-10.4); NEUT# 4.16 X1000 (1.4-6.5); NEUT% 47.3 % (42.2-75.2); PLT 257 X1000 (130-400); RBC 4.23 XMIL (4.7-6.1); RDW 13.1 % (11.5-14.5); WBC 8.77 X1000 (4.8-10.8)
[2018-04-10 07:59] LABS: AGAP 13; BUN 9 mg/dL (8-22); CALCIUM 8.5 mg/dL (8.8-10.2); CHLORIDE 106 mmol/L (98-107); COSMO 282; CREATININE 0.6 mg/dL (0.7-1.2); ESTIMATED GFR > 60; GLUCOSE 99 mg/dL (70-104); MAGNESIUM 1.9 mg/dL (1.5-2.7); POTASSIUM 3.5 mmol/L (3.5-5.1); SODIUM 142 mmol/L (136-145); TCO2 23 mmol/L (25-35)
[2018-04-10] MEDS: LOVENOX SUBQ SCH ×2 (08:39→22:03)
[2018-04-10] MEDS: CELEXA PO SCH (08:39)
[2018-04-10] MEDS: PROSCAR PO SCH (08:39)
[2018-04-10] MEDS: GLUCOPHAGE XR PO SCH ×2 (08:39→16:05)
[2018-04-10] MEDS: FLONASE NAS SCH (08:48)
[2018-04-10] MEDS: NS 1,000 ML IV SCH (08:58)
--- NOTE | 2018-04-10 11:42 | PROGRESS NOTE ---
DATE: 04/10/2018 SUBJECTIVE: The patient denies having any acute complaints this morning and feels better. OBJECTIVE: Vital Signs: Temperature 97.5 degrees, pulse 66, respiratory rate 20, blood pressure 137/71, pulse oximetry 95% on 3 L of oxygen via nasal cannula. General: Patient is alert and oriented x3. He does not appear to be in any acute distress at this time. Cardiovascular System: First and second heart sounds are audible without any murmurs or gallops. Respiratory System: No respiratory distress noted. Bilateral lung air entry is moderately decreased but there are no rales or rhonchi present on auscultation. Gastrointestinal System: Patient is obese. Abdomen is soft and nontender. Normal bowel sounds are present. Diagnostic Data: CBC and basic metabolic panel both are nondiagnostic. IMPRESSION: 1. Acute hypoxemic respiratory failure secondary to bilateral pulmonary emboli. 2. Left lower extremity deep vein thrombosis. 3. Coronary artery disease. 4. Type 2 diabetes mellitus. 5. Hypertension. PLAN: The patient will be continued on Lovenox 100 mg subcutaneously every 12 hours. His oxygenation has improved since admission, however. He has been in overall stable condition. We will continue with his routine home medications for coronary artery disease, diabetes, and hypertension. He was also found to have a urinary tract infection for which we will continue with ceftriaxone intravenously. Further recommendations will be as per hospital course. cc: Cain Davies MD
[2018-04-10] MEDS: ROCEPHIN 1 GM in NS 50 ML IV SCH (12:02)
[2018-04-10] MEDS: HYTRIN PO SCH (22:03)
[2018-04-11] MEDS: NS 1,000 ML IV SCH ×2 (01:14→14:04)
[2018-04-11] MEDS: HUMALOG (PARKWAY) SUBQ SCH ×4 (06:22→21:51)
[2018-04-11] MEDS: PROTONIX PO SCH (06:23)
[2018-04-11 07:33] LABS: BASO# 0.04 X1000 (0.0-0.2); BASO% 0.5 % (0.0-0.8); EOS# 0.59 X1000 (0.0-0.7); EOS% 7.2 % (0.0-10.0); HEMATOCRIT 40.9 % (42.0-52.0); HEMOGLOBIN 13.2 g/dL (14.0-18.0); IMM GRAN# 0.03 X1000 (0.0-0.04); IMM GRAN% 0.4 % (0.0-0.5); LYMPH# 2.61 X1000 (1.2-3.4); LYMPH% 31.6 % (20.5-51.1); MCH 30.1 PG (27-31); MCHC 32.3 g/dL (33-37); MCV 93.2 FL (81-99); MONO% 12.1 % (1.7-9.3); MPV 9.8 FL (7.4-10.4); NEUT# 3.98 X1000 (1.4-6.5); NEUT% 48.2 % (42.2-75.2); PLT 289 X1000 (130-400); RBC 4.39 XMIL (4.7-6.1); RDW 13.2 % (11.5-14.5); WBC 8.25 X1000 (4.8-10.8)
[2018-04-11 08:07] LABS: AGAP 13; BUN 6 mg/dL (8-22); CALCIUM 8.5 mg/dL (8.8-10.2); CHLORIDE 105 mmol/L (98-107); COSMO 279; CREATININE 0.7 mg/dL (0.7-1.2); ESTIMATED GFR > 60; GLUCOSE 96 mg/dL (70-104); POTASSIUM 3.5 mmol/L (3.5-5.1); SODIUM 141 mmol/L (136-145); TCO2 23 mmol/L (25-35)
[2018-04-11] MEDS: GLUCOPHAGE XR PO SCH ×2 (08:31→19:09)
[2018-04-11] MEDS: CELEXA PO SCH (08:31)
[2018-04-11] MEDS: PROSCAR PO SCH (08:31)
[2018-04-11] MEDS: FLONASE NAS SCH (08:31)
[2018-04-11] MEDS: LOVENOX SUBQ SCH ×2 (09:45→21:51)
[2018-04-11] MEDS: ROCEPHIN 1 GM in NS 50 ML IV SCH (14:04)
[2018-04-11] MEDS: HYTRIN PO SCH (21:51)
--- NOTE | 2018-04-11 23:30 | PROGRESS NOTE ---
DATE: 04/11/2018 SUBJECTIVE: The patient states he is generally weak and fatigued. States he typically stays in the bed at home, but is able to transfer himself. The patient unfortunately is quite disinterested in answering questions. He does apparently live in assisted living. Denies any fevers or chills. Denies any focalized weakness. PHYSICAL EXAMINATION: Vital Signs: Temperature 98, pulse 76, respiratory 22, blood pressure 133/66 to 161/76. General: Patient is awake, alert. He is in no current respiratory distress. HEENT: Normocephalic. Neck: Supple. Cardiovascular: Regular rate. Chest clear, although decreased. No murmurs. Abdomen: Soft, nondistended, obese. Extremities: Moves all extremities, although generalized weakness. ASSESSMENT: 1. Acute hypoxic respiratory failure. 2. Bilateral pulmonary emboli. 3. Adult failure to thrive, with generalized weakness. 4. Left lower extremity deep venous thrombosis. 5. Known coronary artery disease. 6. Type 2 diabetes. 7. Hypertension. 8. Methicillin-resistant Staph epidermidis urinary tract infection. PLAN: We will continue patient in the hospital. We will place him on vancomycin due to his methicillin-resistant Staph epidermidis. We will stop his Rocephin. Continue Lovenox. Get Physical Therapy involved. Further orders as needed. Hopefully, he can discharge home over the next few days. cc: Melo Jorge MD
[2018-04-12] MEDS: NS 1,000 ML IV SCH ×2 (02:13→18:08)
[2018-04-12] MEDS ORDERED: IMODIUM PO PRN (06:23)
[2018-04-12] MEDS: PROTONIX PO SCH (06:23)
[2018-04-12] MEDS: HUMALOG (PARKWAY) SUBQ SCH ×4 (06:24→21:37)
[2018-04-12] MEDS ORDERED: VANCOMYCIN IV PER PHARMACY MISC SCH (06:30)
[2018-04-12] MEDS: LIORESAL PO SCH ×2 (08:18→21:33)
[2018-04-12] MEDS: PROSCAR PO SCH (08:18)
[2018-04-12] MEDS: NORVASC PO SCH ×2 (08:19→21:34)
[2018-04-12] MEDS: CELEXA PO SCH (08:20)
[2018-04-12] MEDS: LOVENOX SUBQ SCH ×2 (08:22→21:33)
[2018-04-12] MEDS: GLUCOPHAGE XR PO SCH ×2 (08:22→16:26)
[2018-04-12] MEDS: TYLENOL PO SCH ×2 (08:22→21:33)
[2018-04-12] MEDS: VANCOMYCIN 2,000 MG in NS 500 ML IV SCH (08:33)
[2018-04-12] MEDS: FLONASE NAS SCH (08:36)
[2018-04-12] MEDS: HYTRIN PO SCH (21:33)
--- NOTE | 2018-04-12 23:43 | PROGRESS NOTE ---
DATE: 04/12/2018 SUBJECTIVE: Patient seems uninterested in answering questions this morning. He has not been out of bed, although he notes that he normally stays in the bed most of the day. He is typically able to transfer in a wheelchair by himself. However, currently he is unable to do this. OBJECTIVE/PHYSICAL EXAMINATION: Vital Signs: Temperature 97.4, pulse 82, respiratory 20, BP 144/73. General: Patient is in no current respiratory distress, he is lying flat in bed. HEENT: Normocephalic. Neck: Supple. Cardiovascular: Regular rate. No murmurs. Chest: Clear, nonlabored. No crackles, no wheezing. Abdomen: Soft, nondistended. Extremities: He has no edema. He has generalized weakness. ASSESSMENT: 1. Methicillin-resistant Staphylococcus epidermidis urinary tract infection, currently on vancomycin. 2. Adult failure to thrive with generalized weakness. 3. Left lower extremity deep venous thrombosis. 4. Known coronary artery disease. 5. Type 2 diabetes. 6. Hypertension. PLAN: Continue patient in the hospital. We will transition him from Lovenox to [facility]. Will begin looking for rehab bed. He currently is on vancomycin. We will continue this for another 5 days. cc: Melo Jorge MD
[2018-04-13] MEDS: HUMALOG (PARKWAY) SUBQ SCH ×3 (06:26→17:00)
[2018-04-13] MEDS: PROTONIX PO SCH (06:27)
[2018-04-13 07:38] LABS: AGAP 14; ALBUMIN 3.7 g/dL (3.5-5.0); ALKALINE PHOSPHATASE 89 U/L (32-122); BUN 6 mg/dL (8-22); CALCIUM 8.6 mg/dL (8.8-10.2); CHLORIDE 104 mmol/L (98-107); COSMO 279; CREATININE 0.7 mg/dL (0.7-1.2); ESTIMATED GFR > 60; GLUCOSE 105 mg/dL (70-104); GOT 22 U/L (10-34); GPT 14 U/L (10-44); HEMATOCRIT 39.5 % (42.0-52.0); HEMOGLOBIN 12.6 g/dL (14.0-18.0); MCH 29.8 PG (27-31); MCHC 31.9 g/dL (33-37); MCV 93.4 FL (81-99); MPV 9.8 FL (7.4-10.4); POTASSIUM 3.6 mmol/L (3.5-5.1); RBC 4.23 XMIL (4.7-6.1); RDW 13.1 % (11.5-14.5); SODIUM 141 mmol/L (136-145); TCO2 23 mmol/L (25-35); TOTAL PROTEIN 5.8 g/dL (6.3-8.3); WBC 8.21 X1000 (4.8-10.8)
[2018-04-13] MEDS: CELEXA PO SCH (08:47)
[2018-04-13] MEDS: NORVASC PO SCH (08:47)
[2018-04-13] MEDS: GLUCOPHAGE XR PO SCH ×2 (08:47→17:00)
[2018-04-13] MEDS: VANCOMYCIN 2,000 MG in NS 500 ML IV SCH (08:48)
[2018-04-13] MEDS: TYLENOL PO SCH (08:48)
[2018-04-13] MEDS: FLONASE NAS SCH (08:48)
[2018-04-13] MEDS: PROSCAR PO SCH (08:48)
[2018-04-13] MEDS: LIORESAL PO SCH (08:48)
[2018-04-13] MEDS ORDERED: ELIQUIS PO SCH (09:00)
[2018-04-13] MEDS: ELIQUIS PO SCH ×2 (10:21→19:32)
[2018-04-13 15:13] VITALS: BP 147/68
--- NOTE | 2018-04-14 | DISCHARGE SUMMARY ---
ADMISSION DATE: 04/08/2018 DISCHARGE DATE: 04/13/2018 DIAGNOSES: 1. Acute hypoxic respiratory failure secondary to bilateral pulmonary emboli. 2. Left lower extremity deep vein thrombosis. 3. History of coronary artery disease. 4. Type 2 diabetes mellitus. 5. Hypertension. 6. Methicillin-resistant Staphylococcus epidermidis urinary tract infection. DIAGNOSTICS: 1. CTA pulmonary arteries revealed bilateral pulmonary emboli. 2. Bilateral lower extremity Doppler revealed extensive left lower extremity deep vein thrombosis. No evidence of right lower extremity deep vein thrombosis. MICROBIOLOGY: 1. Blood cultures x2 revealed no growth after 48 hours. 2. Urine culture 04/08/2018 at 7:35 a.m. revealed methicillin-resistant Staphylococcus epidermidis. 3. Urine culture 04/08/2018 at 3:20 revealed no growth. HOSPITAL COURSE: Mr. Wallace presented to the emergency room complaining of shortness of breath. He was found to have bilateral pulmonary emboli as well as a left lower extremity DVT. He was initially given Lovenox. He has been started on Eliquis. He will need 10 mg twice a day for 7 days and start 5 mg twice a day. In regards to his urinary tract infection, Burton catheter was placed and a urine was obtained on April 08 at 7:35 a.m. This culture came back as MRSE, methicillin-resistant Staphylococcus epidermidis. A 2nd urine culture was sent at 3:20 from the same catheter and it revealed no growth. He was given vancomycin IV while in the hospital and he will be discharged on Macrobid 100 mg b.i.d. for 10 days. DISCHARGE PHYSICAL EXAMINATION: Vital Signs: Blood pressure is 147/68 with a heart rate of 69, respirations are 20, temperature is 98.7 degrees oral with room air O2 saturation 95-97% on 3 L nasal cannula. Cardiovascular: Regular rate and rhythm. S1 and S2 appreciated. Pulmonary: Breath sounds are clear with no increased work of breathing noted. Gastrointestinal: Abdomen is soft, nontender, nondistended with bowel sounds in all 4 quadrants. DISCHARGE MEDICATIONS: 1. Tylenol 500 mg p.o. b.i.d. 2. Norvasc 5 mg p.o. b.i.d. 3. Baclofen 5 mg p.o. b.i.d. 4. Vitamin D 3 as directed. 5. Citalopram hydrobromide 5 mg p.o. b.i.d. 6. Finasteride 5 mg p.o. daily. 7. Flonase nose spray 2 sprays in each nostril daily. 8. Lomotil 2 mg capsules p.o. p.r.n. diarrhea. 9. Glucophage XR 500 mg p.o. b.i.d. 10. Protonix 40 mg p.o. daily. 11. MiraLAX 17 g p.o. daily. 12. Hytrin 5 mg p.o. at bedtime. 13. Eliquis 10 mg p.o. b.i.d. for 7 days then Eliquis 5 mg p.o. b.i.d. to start on day 8. 14. Nitrofurantoin macro crystal 100 mg p.o. b.i.d. for 10 days. FOLLOW-UP: He will need to follow up Dr. Guillen in 1 to 2 weeks, sooner if needed. He is being discharged back to [place] via EMS transport in stable condition. TIME SPENT: This is a greater than 30 minute discharge. Dictated by CORDELL Rose for Melo Jorge MD This chart was documented by, CORDELL Rose and accurately reflects the services performed, treatment plan and medical decisions as attested by the providers signature Melo Jorge MD. cc: CORDELL Rose MD
--- NOTE | 2018-04-14 02:40 | DISCHARGE SUMMARY ---
ADMISSION DATE: 04/08/2018 DISCHARGE DATE: 04/13/2018 ADDENDUM: Patient seen and examined by myself. Full note dictated and discussed with nurse practitioner. On discharge, patient is still somewhat confused, but I believe this is his baseline. He still has difficulty getting out of bed, but this certainly is his baseline. The patient has refused rehab. He has methicillin-resistant Staphylococcus epidermidis urinary tract infection. We will place him on antibiotics and we will follow. cc: Melo Jorge MD
== END 2018-04-13 19:30 | DRG 175 ==
LOC: P.ED 06:31 → SUATTDRO 06:32 → P.MEDSURG 06:32
PROVIDERS: ATTEND Family Medicine
CPT/HCPCS: 51702; 71010; 71045; 71275; 80048; 80053; 81001; 82805; 82948; 83690; 83735; 83880; 84484; 85025; 85027; 85379; 87040; 87088; 87186; 87275; 87276; 87804; 93005; 93970; 94761; 96372; 97163; 97530; 99285; A9270; J0696; J1650; J3370; J7030; J7040; Q9967; S0138; XXXXX